=== PATIENT | male | born 1995 | race Caucasian/White ===

== ENCOUNTER 2017-01-07 18:41 | Emergency (ER) | payer BC, OTHER ==
[~2017-01-07] VITALS: Ht 175.3 cm; Wt 95.3 kg
[~2017-01-07 18:41] MED LIST: MULT1TAB97 PO
[2017-01-07 18:50] VITALS: BP 130/72
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
[2017-01-07] MEDS ORDERED: NAPR500T PO (19:25)
--- NOTE | 2017-01-08 08:35 | RAD ---
Right forearm, 2 views, 01/07/2017: History: Injury No fracture or bony abnormality is detected. The soft tissues are unremarkable. IMPRESSION: No significant abnormality is detected.
== END 2017-01-07 19:30 | disposition home or self-care (01) ==
LOC: ER 18:41 → EDBD 18:41 → ER 19:30
DX: S50.11XA Contusion of right forearm, initial encounter (principal); V98.8XXA Other specified transport accidents, initial encounter; Y93.89 Activity, other specified; Y99.8 Other external cause status; Y92.89 Other specified places as the place of occurrence of the external cause
CPT/HCPCS: 73090; 99284